=== PATIENT | male | born 1985 | race Caucasian/White ===

== ENCOUNTER 2017-04-10 08:05 | Emergency (ER) | payer OTHER ==
--- NOTE | ~2017-04-10 | EKG ---
PATIENT: KRISTEL ENRIQUE UNIT #: [id number] Ventricular Rate: 67 BPM Atrial Rate: 67 BPM P-R Interval: 152 ms QRS Duration: 112 ms Q-T Interval: 386 ms QTC Calculation(Bezet): 407 ms P [place]: 33 degrees Calculated R [place]: 13 degrees Calculated T [place]: 24 degrees Diagnosis Line: Normal sinus rhythm Diagnosis Line: Normal ECG Diagnosis Line: No previous ECGs available Diagnosis Line: Confirmed by TERESE GALLO MD ([id number]) on Diagnosis Line: 04/10/2017 1:37:33 PM INTERPRETING MD: CLEO STEVENSON
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
== END 2017-04-10 10:23 | disposition home or self-care (01) ==
LOC: CED 08:05
DX: S20.212A Contusion of left front wall of thorax, initial encounter (principal); F17.210 Nicotine dependence, cigarettes, uncomplicated; V49.40XA Driver injured in collision with unspecified motor vehicles in traffic accident, initial encounter; Y92.410 Unspecified street and highway as the place of occurrence of the external cause
CPT/HCPCS: 71020; 93005; 99283